=== PATIENT | male | born 1970 | race Caucasian/White ===

== ENCOUNTER 2020-10-28 08:29 | Emergency (ER) | payer MEDICAID, OTHER, SELFPAY ==
[2020-10-28 10:49] VITALS: BP 131/87; PULSE 82; RESP 16; TEMP 36.8; O2SAT 96; BMI 29.6
--- NOTE | 2020-10-28 10:59 | ED_ITS ---
HPI - General Adult General Chief complaint: General Medical Stated complaint: not sleeping Time Seen by Provider: 10/28/20 10:59 Source: patient Mode of arrival: ambulatory Limitations: no limitations History of Present Illness HPI narrative: This is a very pleasant 50-year-old male who reports surgical history of appendectomy otherwise no medical history not currently taking any medication he reports that over the past month and half or so has been having a hard time sleeping primarily contributes to the fact he lives here alone he has a lot of family stress and recently has not had a job and at night is able sleep 1-2 hours has tried [id number] sleep aid (melatonin) which has not helped much. States some days when he does not he has no sleep he will have headaches. He otherwise denies any complaint of pain or discomfort at this time. States he is primarily here as he has no primary care doctor to get a sleep aid. He denies any use of illicit drugs or alcohol. Denies any depression or thoughts of self-harm or harm to others. Treatments prior to arrival: none Related Data Previous Rx's Medication Instructions Recorded hydroxyzine HCl 50 mg PO BEDTIME PRN #30 tab 10/28/20 Allergies Allergy/AdvReac Type Severity Reaction Status Date / Time No Known Allergies Allergy Verified 10/28/20 10:46 Review of Systems Review of Systems: Constitutional: No Weight loss, No Fever, No Chills, No Night Sweats, No Fatigue, No Malaise ENT/Mouth: No Hearing loss, No Ear Pain, No Nasal Congestion, No Sinus Pain, No Hoarseness, No sore throat, No Rhinorrhea, No Swallowing Difficulty Eyes: No Eye Pain, No Swelling, No Redness, No Foreign Body, No Discharge, No Vision Changes Cardiovascular: No Chest Pain, No SOB, No Dyspnea on Exertion, No Orthopnea, No Edema, No Palpitations Respiratory: No Cough, No Sputum, No Wheezing, No Smoke Exposure, No Dyspnea Gastrointestinal: No Nausea, No Vomiting, No Diarrhea, No Constipation, No abdominal Pain, No Hematochezia, No Melena Genitourinary: No Dysuria, No Urinary Frequency, No Hematuria, No Urinary Incontinence, No Urgency, No Flank Pain, No Urinary Flow Changes, No Hesitancy Musculoskeletal: No joint pain, No Myalgias, No Joint Swelling Skin: No Skin Lesions, No rash Neuro: No Weakness, No Numbness, No Paresthesias, No Loss of Consciousness, No Dizziness, No Headache Psych: + Anxiety , No Depression, No SI/HI/AH/VH Heme/Lymph: No Bruising, No Bleeding,No Lymphadenopathy Endocrine: No Polyuria, No Polydipsia, No Temperature Intolerance Yes all other systems are reviewed and are negative [facility] Past Medical History Surgical History (Updated 10/28/20 @ 10:53 by Jany Chavez) Hx of appendectomy Social History Social History Smoked in Last 30 Days: No Use of substances other than those prescribed or required for medical reasons: No Advance Directives: Yes Advance Directives Information Provided: No Advance Directives on File: No Physical Exam Vital Signs: Vital Signs: Last Vital Signs Temp 98.3 F 10/28/20 10:49 Pulse 82 10/28/20 10:49 Resp 16 10/28/20 10:49 BP 131/87 10/28/20 10:49 Pulse Ox 96 10/28/20 10:49 Body Mass Index 29.6 Reviewed Const: General: cooperative and healthy appearing; No acute distress or intoxicated appearing Nutritional Appearance: average body habitus Orientation/consciousness: patient oriented x3 HENMT: Head: Yes normal to inspection Ears: hearing grossly normal bilaterally Eyes: General: appearance normal, both eyes and all related structures Visual Lyle: normal visual lyle by confrontation Neck: Neck: Yes normal visual inspection, No positive Brudzinski's sign, No positive Kernig's sign and No tender Thyroid: Thyroid normal Chest: Chest palpation & inspection: normal inspection of the chest Resp: Effort & Inspection: normal respiratory effort Cardio: Jugular venous distension: no JVD Rhythm: regular rhythm Heart sounds: S1 normal heart sound present and S2 normal heart sound present GI: Inspection: Yes normal to inspection Percussion: Yes normal to percussion Auscultation: normal bowel sounds : General: Yes no CVA tenderness Back/Spine/Pelvis: Back: no CVA tenderness Skin: General skin exam: no rashes or lesions noted Neuro: General: patient oriented x3 Extrem: General: Yes normal to inspection Course Course Course Narrative: Pleasant offers no other medical complaints. Having hard time sleeping/insomnia secondary to the social is experiencing will trial short course of hydroxyzine as well as lifestyle modifications and advise for close follow-up with GP list provided. He is agreeable. He does not want to speak to anybody house here in relation to mental health. Thankful for care provided here stable for discharge. Discharge Plan Discharge Clinical Impression: Insomnia, Anxiety Patient Disposition: Home, Self-Care Instructions: Insomnia (ED), Anxiety (ED) Additional Instructions: Balanced diet Exercise Stress relieving techniques Avoid triggers Take medication as prescribed Follow-up with primary care doctor, follow-up list provided of local primary care doctors accepting new patients Return if any concerns or worsening symptoms Thank you Prescriptions: New hydroxyzine HCl 50 mg tablet 50 mg PO BEDTIME PRN (Reason: Sleep ) Qty: 30 RF: 0 Referrals: Jessica Rossi MD [Physician] - 1 week Interventions: ED Discharge Assessment Last Done: 10/28/20 11:23 Discharge Date/Time: 10/28/20 11:20
== END 2020-10-28 11:20 | disposition home or self-care (01) ==
LOC: HO.ED 11:03
PROVIDERS: Emergency Provider Emergency Medicine
DX: G47.00 Insomnia, unspecified (principal); F41.1 Generalized anxiety disorder; F43.0 Acute stress reaction; Z79.899 Other long term (current) drug therapy
CPT/HCPCS: 99283

== ENCOUNTER 2023-08-29 11:26 | Outpatient (REF) | payer SELFPAY ==
[2023-08-29 13:43] LABS: Estimated Average Glucose 123 mg/dL; Hemoglobin A1c % 5.9 % (<6.0)
[2023-08-29 14:09] LABS: Cholesterol 232 mg/dL (<200); HDL Cholesterol 35 mg/dL (>40); LDL Cholesterol Calculated 151 mg/dL (<100); Triglycerides 233 mg/dL (<150)
[2023-08-29 14:19] LABS: Alanine Aminotransferase 20 U/L (0-40); Albumin Level 4.4 g/dL (3.5-5.0); Alkaline Phosphatase 63 U/L (39-117); Anion Gap 13 (12-20); Aspartate Amino Transferase 18 U/L (5-37); Bilirubin Total 1.4 mg/dL (0.0-1.0); Blood Urea Nitrogen 14 mg/dL (9-16); Calcium 9.2 mg/dL (8.4-10.2); Carbon Dioxide 24 mmol/L (22-29); Chloride 107 mmol/L (96-108); Estimated Glomerular Filt Rate > 60; Glucose Random 86 mg/dL (60-115); Potassium 4.3 mmol/L (3.3-5.1); Sodium 140 mmol/L (135-145)
[2023-08-29 14:31] LABS: Reflex LDLD? No
[2023-08-29 14:34] LABS: TSH reflex Free T4 0.79 uIU/mL (0.32-4.0)
[2023-08-29 16:23] LABS: CT PCR NOT DETECTED (Not Detect.); NG PCR NOT DETECTED (Not Detect.)
[2023-08-30 04:24] LABS: Syphilis Screen Nonreactive (Nonreactive)
[2023-08-30 04:40] LABS: HBS Num1 0.42 mIU/mL (0-7.99); HBc Num1 0.12 S/CO (0.00-0.79); HBsAGNum1 0.44 S/CO (0.00-0.99); HIV AB/AG Nonreactive (Nonreactive); HIV Num 1 0.04 S/CO (0.00-0.99); Hepatitis B Core Antibody Nonreactive (Nonreactive); Hepatitis B Surface Antigen Negative (Negative); ~HepC Num1 0.16 S/CO (0.00-0.79); ~Hepatitis B Surface Antibody NONREACTIVE (Nonreactive); ~Hepatitis C Antibody Nonreactive (Nonreactive)
== END 2023-08-29 11:27 | disposition home or self-care (01) ==
LOC: HO.HHCL 11:26
PROVIDERS: Visit Provider Family Medicine
DX: M25.551 Pain in right hip (principal); M25.561 Pain in right knee; M79.641 Pain in right hand; M25.531 Pain in right wrist; E78.2 Mixed hyperlipidemia; R73.03 Prediabetes; R20.0 Anesthesia of skin; Z11.3 Encounter for screening for infections with a predominantly sexual mode of transmission
CPT/HCPCS: 0353U; 36415; 73110; 73130; 73502; 73562; 80053; 80061; 83036; 84443; 86704; 86706; 86780; 86803; 87340; 87389

== ENCOUNTER 2023-10-11 14:24 | Outpatient (REF) | payer MEDICAID, OTHER, SELFPAY ==
--- NOTE | 2023-10-11 14:28 | EMG_ITS ---
Chief complaint: Right hand numbness Reason for referral: Evaluate for Carpal Tunnel Syndrome Referred by: Dr. Goodman Procedure done: Right upper extremity NCS/EMG Precautions and/or limitations: Azeri speaking, seen with plug grower The limb temperature was monitored continuously and remained between 32-36 degrees C during the performance of the NCS. Nerve Conduction Studies Anti Sensory Summary Table ?Stim Site NR Onset (ms) Norm Onset (ms) Peak (ms) Norm Peak (ms) O-P Amp (?V) Norm O-P Amp Site1 Site2 Delta-0 (ms) Dist (cm) Arturo (m/s) Norm Arturo (m/s) Right Median Anti Sensory (2nd Digit) Wrist ? 3.8 4.4 <3.6 7.5 >10 Wrist 2nd Digit 3.8 14.0 37 Right Radial Anti Sensory (Thumb) Forearm ? 1.3 1.8 <3.1 30.2 Forearm Thumb 1.3 0.0 Right Ulnar Anti Sensory (5th Digit) Wrist ? 2.3 2.8 <3.7 15.4 >15.0 Wrist 5th Digit 2.3 14.0 61 Motor Summary Table ?Stim Site NR Onset (ms) Norm Onset (ms) O-P Amp (mV) Norm O-P Amp iAmp (mV) Amp (1st) (%) Site1 Site2 Delta-0 (ms) Dist (cm) Arturo (m/s) Norm Arturo (m/s) Right Median Motor (Abd Poll Brev) Wrist ? 5.5 <3.9 6.4 >4.5 7.4 100.0 Elbow Wrist 3.7 21.0 57 >45 Elbow ? 9.2 6.9 8.3 107.8 Right Ulnar Motor (Abd Dig Minimi) Wrist ? 2.7 <3.0 5.8 >5 6.6 100.0 B Elbow Wrist 3.2 17.5 55 >45 B Elbow ? 5.9 4.8 5.7 82.8 A Elbow B Elbow 1.5 10.0 67 >45 A Elbow ? 7.4 5.1 6.0 87.9 EMG ?Side Muscle Nerve Root Ins Act Fibs Psw Amp Dur Poly Recrt Int Pat Comment Right 1stDorInt Ulnar C8-T1 Nml Nml Nml Nml Nml 0 Nml Complete Right FlexCarRad Median C6-7 Nml Nml Nml Nml Nml 0 Nml Complete Right Biceps Musculocut C5-6 Nml Nml Nml Nml Nml 0 Nml Complete Right Triceps Radial C6-7-8 Nml Nml Nml Nml Nml 0 Nml Complete Right Deltoid Axillary C5-6 Nml Nml Nml Nml Nml 0 Nml Complete FINDINGS: Right median motor nerve showed prolonged distal latency, normal amplitude and normal conduction velocity. Right median sensory nerve showed prolonged peak latency. All other nerves tested were within normal. Concentric needle EMG was performed in selected muscles of the right upper extremity. Study did not reveal signs of electric abnormalities as shown in the table below. IMPRESSION: 1. This is an abnormal study. 2. There is electrodiagnostic evidence for right moderate-severe median neuropathy at the wrist, consistent with carpal tunnel syndrome. 3. There is no electrodiagnostic evidence for ulnar neuropathy, brachial plexopathy, or cervical radiculopathy. Thank you for your kind referral. Jennifer Wooten MD, ANDRES Board Certified, [place] [employer] and [employer] (ABPMR) Board Certified, [place] Board [employer] Electrodiagnostic Medicine (ABEM) [place] [id number] [facility]
== END 2023-10-11 14:25 | disposition home or self-care (01) ==
LOC: HO.NEURO 14:24
PROVIDERS: Visit Provider Family Medicine
DX: M79.641 Pain in right hand (principal)
CPT/HCPCS: 95886; 95909

== ENCOUNTER → 2023-10-11 14:28 | Outpatient (BNV) | payer SELFPAY | PROVIDERS: Visit Provider Physical Medicine & Rehabilitation | DX: G56.01 Carpal tunnel syndrome, right upper limb (principal); G56.11 Other lesions of median nerve, right upper limb | CPT/HCPCS: 95886; 95909 ==

== ENCOUNTER 2023-11-29 10:05 | Outpatient (REF) | payer SELFPAY ==
[2023-11-29 12:01] LABS: Alanine Aminotransferase 24 U/L (0-40); Albumin Level 4.4 g/dL (3.5-5.0); Alkaline Phosphatase 76 U/L (39-117); Aspartate Amino Transferase 13 U/L (5-37); Bilirubin Direct 0.3 mg/dL (0.0-0.5); Bilirubin Total 1.2 mg/dL (0.0-1.0); Cholesterol 226 mg/dL (<200); HDL Cholesterol 33 mg/dL (>40); LDL Cholesterol Calculated 135 mg/dL (<100); Total Protein 7.6 g/dL (6.5-8.0); Triglycerides 294 mg/dL (<150)
[2023-11-29 12:50] LABS: Reflex LDLD? No
== END 2023-11-29 10:06 | disposition home or self-care (01) ==
LOC: HO.HHCL 10:05
PROVIDERS: Visit Provider Family Medicine
DX: E78.2 Mixed hyperlipidemia (principal)
CPT/HCPCS: 36415; 80061; 80076